=== PATIENT | female | born 1940 | race Caucasian/White ===

== ENCOUNTER 2022-03-24 02:20 | Inpatient (IN) | payer OTHER, SELFPAY ==
[2022-03-24] VITALS (18 sets, daily range): BP systolic 91–126; BP diastolic 51–80; PULSE 84–98; RESP 15–19; TEMP 36.2–36.8; O2SAT 93–99; BMI 12.3
--- NOTE | ~2022-03-24 | CT_ITS ---
EXAMINATION: NONCONTRAST HEAD CT NONCONTRAST CERVICAL SPINE CT INDICATION INFORMATION: Trauma. Pain. COMPARISON: 08/21/2012 TECHNIQUE: Separate noncontrast CT examinations of the head and cervical spine were performed. Coronal and sagittal images were created for each examination at the technologist workstation. This CT examination was performed using dose optimization techniques as appropriate, variously including the following: *Automated exposure control *Adjustment of mA and/or kV according to patient size (this includes techniques or standardized protocols for targeted exams where dose is matched to indication/reason for exam; i.e. extremities or head) *Use of iterative reconstruction technique DLP: 540 mGy-cm FINDINGS: Head: There is no evidence of acute intracranial hemorrhage or territorial infarction. No abnormal mass effect or midline shift is seen. Grimes to white matter differentiation is well preserved. No extra-axial fluid collections are identified. No hydrocephalus. Proportional prominence of the ventricles and sulcal spaces is consistent with mild volume loss. Patchy periventricular and deep white matter hypoattenuation is consistent with moderate small vessel ischemic changes. Chronic lacunar infarct in the right thalamus. Cavernous carotid calcifications. No acute osseous or soft tissue abnormality. The mastoid air cells and visualized portions of the paranasal sinuses are well aerated. Cervical spine: There is anatomic alignment of the vertebral bodies and posterior elements. The atlantoaxial and atlantooccipital articulations are intact. Vertebral body heights maintained. Confluent bridging osteophytes present from C5 T1. 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 Facet arthropathy throughout cervical spine, most notably on the left from C2 through C5 and on the right and C2-C3. No evidence of acute fracture. No prevertebral soft tissue swelling. Visualized portions of the lung apices are unremarkable. The thyroid gland is unremarkable. CT/CT cervical spine wo IV con IMPRESSION: * No acute intracranial findings. * No acute fracture or malalignment of the cervical spine. * Chronic findings as described.
--- NOTE | 2022-03-24 02:44 | ED.ALCOHOL ---
HPI - Alcohol General Chief Complaint: ETOH/Substance Use Stated Complaint: ETOH? Time Seen by Provider: 03/24/22 02:32 Source: patient and EMS Mode of arrival: EMS Limitations: no limitations History of Present Illness HPI narrative: Patient history of depression alcohol abuse apparently had few drinks today slip from the recliner fell backwards had hard time to get up at this time denies any pain or any injuries no loss of consciousness patient lost her and grandchildren 2 years ago since then been depressed and drinking off and on but denies that she is alcoholic walks with walker Related Data Allergies Allergy/AdvReac Type Severity Reaction Status Date / Time iodine [IODINE] Allergy Unknown KERNS Unverified 11/01/19 15:02 SKIN, burning Review of Systems Review of Systems: Yes all other systems are reviewed and are negative [facility] Past Medical History Medical History Alcohol abuse Depression with suicidal ideation Social History Social History Advance Directives: No Advance Directives Information Provided: Yes Physical Exam ED Vital Signs: Vital Signs - 24 hr 03/24/22 02:30 03/24/22 04:56 03/24/22 05:11 Temperature 97.6 F Pulse Rate 90 Respiratory Rate 16 18 18 Blood Pressure 121/69 Pulse Oximetry 94 Oxygen Delivery Method Room Air Oxygen Flow Rate 03/24/22 04:35 03/24/22 04:50 03/24/22 05:20 Temperature Pulse Rate Respiratory Rate 18 18 18 Blood Pressure Pulse Oximetry Oxygen Delivery Method Oxygen Flow Rate 03/24/22 05:05 03/24/22 05:26 03/24/22 05:41 Temperature Pulse Rate Respiratory Rate 18 18 18 Blood Pressure Pulse Oximetry Oxygen Delivery Method Oxygen Flow Rate 03/24/22 05:57 Temperature Pulse Rate 92 Respiratory Rate 18 Blood Pressure 98/55 L Pulse Oximetry 95 Oxygen Delivery Method Nasal Cannula Oxygen Flow Rate 2 BMI result Body Mass Index 12.3 Appearance: Alert. Oriented X3. No acute distress. ETOH++ unkept condition Eyes: PERRLA, No Nystagmus no pallor icterus ENT: Pharynx normal. Oral Mucosa moist Neck: Normal inspection. Neck supple. CVS: Normal heart rate and rhythm. Pulses normal. Respiratory: No respiratory distress. Equal air entry bilateral, no wheezing/rales/rhonchi Abdomen: Soft and nontender. Bowel sounds are present, no mass palpable, no CVA tenderness Skin: Skin warm and dry. Normal skin color. Normal skin turgor. Extremities: 3+ lower extremity edema. No calf tenderness Neuro: Oriented X 3. No motor deficit. No sensory deficit.No cerebellar signs , cranial nerves II-XII intact Medical Decision Making Medical Decision Making [facility] Narrative: Patient alcoholic very agitated in the ER wanted to go home with alcohol level of 187 had to give Ativan and Haldol so that she can relax at this time patient is sleeping will evaluate again when she wakes up whether she needs any help for depression and alcohol use are not. Patient had CT and C-spine CT is negative. Patient need to be re-evaluated by Dr. Vasquez before discharge to see whether patient can ambulate of her own Lab Data [facility] Lab Attestation statement: I reviewed the patient's lab results. 03/24/22 03:03 03/24/22 03:03 Labs: Lab Results 03/24/22 03/24/22 03/24/22 Range/Units 03:03 03:03 03:03 WBC 5.1 (4.8-10.8) X10*3/uL RBC 3.48 L (4.20-5.50) X10*6/uL Hgb 12.3 (12.0-16.0) g/dl Hct 37.1 (37.0-47.0) % MCV 106.6 H (80.0-98.0) fL MCH 35.3 H (27.0-33.0) pg MCHC 33.2 (31.0-35.0) g/dl RDW 12.6 (11.0-16.0) % Plt Count 135 L (160-400) X10*3/uL MPV 9.7 (9.4-12.3) fL Immature Gran % (Auto) 0.2 (0.0-0.4) % Neut % (Auto) 43.6 L (45-73) % Lymph % (Auto) 42.8 H (20-40) % [place] % (Auto) 8.3 (2-11) % Eos % (Auto) 4.5 H (0-4) % Baso % (Auto) 0.6 (0-2) % Lymph # (Auto) 2.2 (1.2-4.9) X10*3/uL [place] # (Auto) 0.4 (0.1-1.2) X10*3/uL Eos # (Auto) 0.2 (0.0-0.4) X10*3/uL Baso # (Auto) 0.0 (0.0-0.2) X10*3/uL Abs Immat Gran (auto) 0.01 (0.00-0.03) X10*3/uL Absolute Neuts (auto) 2.2 (2.0-8.3) x10*3/uL Absolute Nucleated RBC 0.000 (0.0-0.012) X10*3/uL Nucleated RBC % (auto) 0.0 (0.0-0.2) /100WBC PT 13.0 (10.0-13.1) SEC INR 1.1 (0.9-1.1) Sodium 147 H (135-145) mmol/L Potassium 3.7 (3.3-5.1) mmol/L Chloride 106 (96-108) mmol/L Carbon Dioxide 28 (22-29) mmol/L Anion Gap 17 (12-20) BUN 4 L (9-16) mg/dL Creatinine 0.70 (0.5-1.4) mg/dL Estim Creat Clear Calc 30.4 Estimated GFR > 60 Random Glucose 89 (60-115) mg/dL Calcium 8.6 (8.4-10.2) mg/dL Magnesium 1.7 (1.6-2.6) mg/dL Total Bilirubin 0.9 (0.0-1.0) mg/dL AST 40 H (5-31) U/L ALT 20 (0-31) U/L Alkaline Phosphatase 137 H (39-117) U/L B-Natriuretic Peptide (<100) pg/mL Total Protein 5.6 L (6.5-8.0) g/dL Albumin 3.1 L (3.5-5.0) g/dL Ethyl Alcohol mg/dL 03/24/22 03/24/22 Range/Units 03:03 03:03 WBC (4.8-10.8) X10*3/uL RBC (4.20-5.50) X10*6/uL Hgb (12.0-16.0) g/dl Hct (37.0-47.0) % MCV (80.0-98.0) fL MCH (27.0-33.0) pg MCHC (31.0-35.0) g/dl RDW (11.0-16.0) % Plt Count (160-400) X10*3/uL MPV (9.4-12.3) fL Immature Gran % (Auto) (0.0-0.4) % Neut % (Auto) (45-73) % Lymph % (Auto) (20-40) % [place] % (Auto) (2-11) % Eos % (Auto) (0-4) % Baso % (Auto) (0-2) % Lymph # (Auto) (1.2-4.9) X10*3/uL [place] # (Auto) (0.1-1.2) X10*3/uL Eos # (Auto) (0.0-0.4) X10*3/uL Baso # (Auto) (0.0-0.2) X10*3/uL Abs Immat Gran (auto) (0.00-0.03) X10*3/uL Absolute Neuts (auto) (2.0-8.3) x10*3/uL Absolute Nucleated RBC (0.0-0.012) X10*3/uL Nucleated RBC % (auto) (0.0-0.2) /100WBC PT (10.0-13.1) SEC INR (0.9-1.1) Sodium (135-145) mmol/L Potassium (3.3-5.1) mmol/L Chloride (96-108) mmol/L Carbon Dioxide (22-29) mmol/L Anion Gap (12-20) BUN (9-16) mg/dL Creatinine (0.5-1.4) mg/dL Estim Creat Clear Calc Estimated GFR Random Glucose (60-115) mg/dL Calcium (8.4-10.2) mg/dL Magnesium (1.6-2.6) mg/dL Total Bilirubin (0.0-1.0) mg/dL AST (5-31) U/L ALT (0-31) U/L Alkaline Phosphatase (39-117) U/L B-Natriuretic Peptide 147 H (<100) pg/mL Total Protein (6.5-8.0) g/dL Albumin (3.5-5.0) g/dL Ethyl Alcohol 187 mg/dL Medications Administered Discontinued Medications Generic Name Dose Route Start Last Admin Trade Name Freq PRN Reason Stop Dose Admin Haloperidol Lactate 5 mg 03/24/22 04:38 03/24/22 04:41 Haloperidol Lactate 5 Mg/Ml Vial IM 03/24/22 04:39 5 mg ONCE ONE Administration Lorazepam 0.5 mg 03/24/22 04:09 03/24/22 04:19 Lorazepam 2 Mg/Ml Vial IVPUSH 03/24/22 04:10 Not Given ONCE ONE Lorazepam 1 mg 03/24/22 04:18 03/24/22 04:20 Lorazepam 2 Mg/Ml Vial IM 03/24/22 04:19 1 mg ONCE ONE Administration Discharge Plan Discharge Clinical Impression: Alcoholic intoxication Patient Disposition: Still a Patient Additional Instructions: Stop drinking alcohol Follow with detox Interventions: [place]-Suicide Risk Severity Scale Last Done: 03/24/22 03:06
[2022-03-24 03:09] LABS: Basophils Percent Auto 0.6 % (0-2); Eosinophils Absolute Auto 0.2 X10*3/uL (0.0-0.4); Eosinophils Percent Auto 4.5 % (0-4); Hematocrit 37.1 % (37.0-47.0); Hemoglobin 12.3 g/dl (12.0-16.0); Imm Gran Abs Auto 0.01 X10*3/uL (0.00-0.03); Imm Gran Pct Auto 0.2 % (0.0-0.4); Lymphocytes Absolute Auto 2.2 X10*3/uL (1.2-4.9); Lymphocytes Percent Auto 42.8 % (20-40); MANUAL DIFF FLAG NO; Mean Corpuscular HGB Conc 33.2 g/dl (31.0-35.0); Mean Corpuscular Hemoglobin 35.3 pg (27.0-33.0); Mean Corpuscular Volume 106.6 fL (80.0-98.0); Mean Platelet Volume 9.7 fL (9.4-12.3); Monocytes Absolute Auto 0.4 X10*3/uL (0.1-1.2); Monocytes Percent Auto 8.3 % (2-11); Neutrophils Absolute Auto 2.2 x10*3/uL (2.0-8.3); Neutrophils Percent Auto 43.6 % (45-73); Platelet Count 135 X10*3/uL (160-400); Red Blood Count 3.48 X10*6/uL (4.20-5.50); Red Cell Distribution Width 12.6 % (11.0-16.0); White Blood Count 5.1 X10*3/uL (4.8-10.8)
[2022-03-24 03:24] LABS: Ethanol 187 mg/dL
[2022-03-24 03:26] LABS: Alanine Aminotransferase 20 U/L (0-31); Albumin Level 3.1 g/dL (3.5-5.0); Alkaline Phosphatase 137 U/L (39-117); Anion Gap 17 (12-20); Aspartate Amino Transferase 40 U/L (5-31); Bilirubin Total 0.9 mg/dL (0.0-1.0); Blood Urea Nitrogen 4 mg/dL (9-16); Calcium 8.6 mg/dL (8.4-10.2); Carbon Dioxide 28 mmol/L (22-29); Chloride 106 mmol/L (96-108); Creatinine Clr Calc Pharmacy 30.4; Estimated Glomerular Filt Rate > 60; Glucose Random 89 mg/dL (60-115); Magnesium 1.7 mg/dL (1.6-2.6); Potassium 3.7 mmol/L (3.3-5.1); Sodium 147 mmol/L (135-145); Total Protein 5.6 g/dL (6.5-8.0)
[2022-03-24 03:32] LABS: B Type Natriuretic Peptide 147 pg/mL (<100); INTERNATIONAL NORM RATIO 1.1 (0.9-1.1)
[2022-03-24] MEDS: LORazepam 2 MG/ML VIAL 1 MG IM (04:20)
--- NOTE | 2022-03-24 04:30 | PC.NURSE ---
Pt ripped out IV from R AC.
--- NOTE | 2022-03-24 04:34 | PC.NURSE ---
Pt noted to be combative, argumentative screaming at staff. Pt pulled out IV from R AC. Pt medicated per MAR using ordered medication restraint.
[2022-03-24] MEDS: Haloperidol Lactate 5 MG/ML VIAL IM (04:41)
--- NOTE | 2022-03-24 04:52 | PC.NURSE ---
Pt medicated per Apr. Pt continues to yell at staff using profanity attempting to climb out of bed.
--- NOTE | 2022-03-24 05:10 | PC.NURSE ---
Pt medicated per APR r/t pt continues to be combative, yelling at staff using profanity attempting to climb oob.
--- NOTE | 2022-03-24 05:26 | PC.NURSE ---
Pt currently sleeping with eyes closed RR 18 even and unlabored no s/sx respiratory distress noted.
--- NOTE | 2022-03-24 05:47 | PC.NURSE ---
Medication restraint completed. Pt eyes are closed RR 18 even and unlabored.
--- NOTE | 2022-03-24 05:53 | PC.NURSE ---
Pt stating at 81% room air. Pt placed on 2 liters oxygen via nasal cannula. Pt stating 95% on 2 lites. No s/sx of Respiratory distress noted.
--- NOTE | 2022-03-24 08:02 | PC.NURSE ---
pt awake to tactile stimuli, pt was med earlier with ativan 1mg and haldol 5mg. lungs - cta. heart sounds - regular. abd soft and non-tender, bs + x 4 quads. maurisio legs piyush with 2+ pitting edema. iv # 22 placed to l forearm and wrapped with cling.
--- NOTE | 2022-03-24 08:04 | MHC.EDTECH ---
Patient cleaned up and changed from home clothes to hospital gown with help of NOY Farr. Bed changed with fresh linen and pad, purewick placed. Patient was repositioned and head of bed elevated.
[2022-03-24] MEDS: Sodium Chloride 0.45 % 1,000 ML 200 ML IVCONT (08:10)
[2022-03-24 10:22] LABS: Glucose, Whole Blood 67 mg/dL (60-115)
--- NOTE | 2022-03-24 11:43 | PC.NURSE ---
hosp cynthia (danyell) at bedside, pt aware of plan of care for admission to hosp.
[2022-03-24] MEDS: Dextrose 50 % 25 GM/50 ML SYRINGE IVPUSH ×2 (12:02→14:35)
--- NOTE | 2022-03-24 12:02 | PC.NURSE ---
pt's poc 67 given dextrose 50% 25gm ivp x 1.
[2022-03-24 12:12] LABS: Anion Gap 13 (12-20); Blood Urea Nitrogen 4 mg/dL (9-16); Calcium 8.2 mg/dL (8.4-10.2); Carbon Dioxide 33 mmol/L (22-29); Chloride 107 mmol/L (96-108); Creatinine Clr Calc Pharmacy 32.2; Estimated Glomerular Filt Rate > 60; Glucose Random 207 mg/dL (60-115); Potassium 3.5 mmol/L (3.3-5.1); Sodium 149 mmol/L (135-145)
[2022-03-24 13:12] LABS: Influenza A PCR NEGATIVE (Negative); Influenza B PCR NEGATIVE (Negative); Resp Syncy Virus RNA Qual PCR NEGATIVE (Negative); SARS COV2 PCR INHOUSE NEGATIVE (Negative)
--- NOTE | 2022-03-24 13:19 | PHA.MEDREC ---
Pharmacy Consult ? Medication Reconciliation Pharmacy has completed the medication reconciliation. Patient unable to answer questions. left voicemail on sons phone. it doesnt seem the patient takes medication chronically based on fill history.
--- NOTE | 2022-03-24 13:25 | P.HPHOSP_ITS ---
History of Present Illness Date of Service: 03/24/22 Attending physician on admission: Wilman Valle Chief Complaint: Fall Pt is a 81-year-old female with an unknown PMH presents to the ED with after a fall at home. Pt unable to provide HPI due to mentation. Apparently pt was drinking at home last night and slipped from her recliner and fell backwards out of her chair. She denies LOC or headstrike. At the time of presentation to the ED pt also claims she has no pain or injuries. Pt states she lost her husdand and two grandchildren two years ago and since then has been depressed and drinking more frequently. Labs found her to be hypernatremic at 147, which increased to 149 after IVF of NS. Pt became very agitated in the Ed and wanted to go home; she was given Ativan and Haldol for agitation. In the ED patient is hypertensive at 90/55. Labs were significant for MCV of 106.6, sodium of 147 with repeat of 149, BNP elevated at 147. Patient's ethyl alcohol level was 187 at time of presentation. CT?of head and cervical spine showed no acute intracranial findings and no acute fracture or malalignment of the cervical spine. Pt was treated with NS, Ativan, Haldol, and D10. Pt will be admitted to the hospital for treatment of?AMS and hypernatremia with IVF. Review of Systems Review of Systems: Unable to obtain due to patient's mentation [facility] Medical History Alcohol abuse Depression with suicidal ideation Social History Advance Directives: No Advance Directives Information Provided: Yes Meds Allergies Allergy/AdvReac Type Severity Reaction Status Date / Time iodine [IODINE] Allergy Unknown KERNS Unverified 11/01/19 15:02 SKIN, burning Active Medications: Current Medications Sodium Chloride (Sodium Chloride 0.45 %) 1,000 mls @ 200 mls/hr IVCONT .Q5H [facility] Last Admin: 03/24/22 08:10 Dose: 200 mls/hr Dextrose (D10) 1,000 mls @ 100 mls/hr IVCONT .Q10H [facility] Home Medications Medication Instructions Recorded Confirmed Last Taken Type Unobtainable 03/24/22 03/24/22 Unknown History Physical Exam Vital Signs and Narrative: Vital Signs: Last Vital Signs Temp 98.1 F 03/24/22 12:21 Pulse 88 03/24/22 12:21 Resp 17 03/24/22 12:21 BP 101/59 L 03/24/22 12:21 Pulse Ox 97 03/24/22 12:21 O2 Del Method 03/24/22 12:21 O2 Flow Rate 1 03/24/22 12:21 BMI result Body Mass Index 12.3 Constitutional: Somnolent, capable of opening eyes to verbal commands. Mental Status: Not oriented to person, place and time. Eyes: Pupils are equal, round, and reactive to light. Ear, Nose, and Throat: Oropharynx clear, mucous membranes moist. Ears and nose without deformities. Trachea midline. Respiratory: Clear to auscultation bilaterally. No wheezing, rales, or rhonchi. Cardiovascular: S1, S2 regular. No murmurs, rubs, or gallops. Gastrointestinal: Abdomen soft, non-tender, non-distended. Neurologic: Moves all extremities spontaneously. Musculoskeletal: No cyanosis or clubbing. Extremities: Bilateral symmetrical erythema and trace edema. Results Labs 03/24/22 03:03 03/24/22 11:50 Labs: Laboratory Results - last 24 hr 03/24/22 03/24/22 03/24/22 03:03 03:03 03:03 MCV 106.6 H MCH 35.3 H MCHC 33.2 RDW 12.6 Plt Count 135 L MPV 9.7 Immature Gran % (Auto) 0.2 Neut % (Auto) 43.6 L Lymph % (Auto) 42.8 H Young % (Auto) 8.3 Eos % (Auto) 4.5 H Baso % (Auto) 0.6 Lymph # (Auto) 2.2 Young # (Auto) 0.4 Eos # (Auto) 0.2 Baso # (Auto) 0.0 Abs Immat Gran (auto) 0.01 Absolute Neuts (auto) 2.2 Absolute Nucleated RBC 0.000 Nucleated RBC % (auto) 0.0 PT 13.0 INR 1.1 Anion Gap 17 Estim Creat Clear Calc 30.4 Estimated GFR > 60 POC Glucose Random Glucose 89 Calcium 8.6 Magnesium 1.7 Total Bilirubin 0.9 AST 40 H ALT 20 Alkaline Phosphatase 137 H B-Natriuretic Peptide Total Protein 5.6 L Albumin 3.1 L Ethyl Alcohol Influenza Type A (PCR) Influenza Type B (PCR) RSV RNA Qual (PCR) SARS-CoV-2 RNA (RT-PCR) 03/24/22 03/24/22 03/24/22 03:03 03:03 10:18 MCV MCH MCHC RDW Plt Count MPV Immature Gran % (Auto) Neut % (Auto) Lymph % (Auto) Young % (Auto) Eos % (Auto) Baso % (Auto) Lymph # (Auto) Young # (Auto) Eos # (Auto) Baso # (Auto) Abs Immat Gran (auto) Absolute Neuts (auto) Absolute Nucleated RBC Nucleated RBC % (auto) PT INR Anion Gap Estim Creat Clear Calc Estimated GFR POC Glucose 67 Random Glucose Calcium Magnesium Total Bilirubin AST ALT Alkaline Phosphatase B-Natriuretic Peptide 147 H Total Protein Albumin Ethyl Alcohol 187 Influenza Type A (PCR) Influenza Type B (PCR) RSV RNA Qual (PCR) SARS-CoV-2 RNA (RT-PCR) 03/24/22 03/24/22 11:50 12:21 MCV MCH MCHC RDW Plt Count MPV Immature Gran % (Auto) Neut % (Auto) Lymph % (Auto) Young % (Auto) Eos % (Auto) Baso % (Auto) Lymph # (Auto) Young # (Auto) Eos # (Auto) Baso # (Auto) Abs Immat Gran (auto) Absolute Neuts (auto) Absolute Nucleated RBC Nucleated RBC % (auto) PT INR Anion Gap 13 Estim Creat Clear Calc 32.2 Estimated GFR > 60 POC Glucose Random Glucose 207 H Calcium 8.2 L Magnesium Total Bilirubin AST ALT Alkaline Phosphatase B-Natriuretic Peptide Total Protein Albumin Ethyl Alcohol Influenza Type A (PCR) NEGATIVE Influenza Type B (PCR) NEGATIVE RSV RNA Qual (PCR) NEGATIVE SARS-CoV-2 RNA (RT-PCR) NEGATIVE Imaging Radiologist's Impressions: Impressions Cervical Spine CT 03/24/22 04:14 IMPRESSION: * No acute intracranial findings. * No acute fracture or malalignment of the cervical spine. * Chronic findings as described. Head CT 03/24/22 04:14 IMPRESSION: * No acute intracranial findings. * No acute fracture or malalignment of the cervical spine. * Chronic findings as described. Assessment and Plan (1) Alcoholic intoxication: Status: Acute (2) Acute hypernatremia: Status: Acute (3) Hypoglycemia: Status: Acute Plan Pt is a 81-year-old female with an unknown PMH presents to the ED with after a fall at home. Labs revealed acute hypernatremia. Pt will be admitted to the hospital for treatment of?AMS and hypernatremia with IVF. Acute hypernatremia Patient presented with sodium of 147 with repeat of 149 after IVF of NS Continue D10 IVF Monitor labs Fall at home CT of head and spine negative for acute intracranial process or fracture Acetaminophen for pain PT evaluation prior to discharge Acute alcohol intoxication in the setting of alcohol use disorder Patient presented with ethyl alcohol level of 187 Check folic acid and B12 levels Thiamine, folate CARE team consult Agitation Patient received Haldol and Ativan in ED for agitation Monitor mentation/mood Hypotension Possibly secondary to dehydration Pt presented with BP of 98/55, currently 118/64 IVF Monitor BP Elevated BNP Patient's BNP mildly elevated at 147, baseline unknown Patient does not seem in fluid overload Monitor fluid status Hypoglycemia Pt's POC found to be as low as 51 Continue D10 Monitor glucose Encourage po intake when capable Full Code Attending:?Dr. Valle DVT Prophylaxis: Lovenox Pt will require a hospitalization of at least two nights for treatment of?AMS and hypernatremia with IVF. Time Spent With Patient Time: Total time managing care of this patient today ____ minutes. Quality Stroke Does the patient have a stroke diagnosis?: No VTE Prior VTE?: No VTE Risk Level:: Medical - moderate - high VTE Device Contraindication: Treatment Not Indicated VTE Drug Contraindication: N/A - Med Ordered
--- NOTE | 2022-03-24 14:10 | MHC.CM.ED ---
Received case management consult from Dr Vasquez. Patient came to the ER due to a fall r/t ETOH abuse. Physical therapy attempted to meet with patient. Patient was too somnolent to participate. If short term rehab is recommended, placement will not be able to be found until CIWA score is zero. Dr Vasquez aware. Continue to monitor for d/c needs.
[2022-03-24 14:11] LABS: Glucose, Whole Blood 51 mg/dL (60-115)
[2022-03-24] MEDS: Dextrose 10 % 1,000 ML 100 ML IVCONT ×2 (14:29→23:51)
--- NOTE | 2022-03-24 14:37 | MHC.EDTECH ---
Patient completely soiled with urine around 1130AM. She soaked two underpads, hospital gown and sheets with an extra large amt. of urine. Patient cleaned up with help of photographic equipment technicianharry Kessler and put into clean hospital gown, fresh linen put on stretcher with underpads. Patient's purewick put back in place and patient repositioned in bed.
[2022-03-24] MEDS: Enoxaparin Sodium 40 MG/0.4 ML SYRINGE SUBCUT (15:45)
--- NOTE | 2022-03-24 15:47 | PC.NURSE ---
Patient still sleeping not responding to voice. vitals stable.
[2022-03-24 16:00] LABS: Folate 10.8 ng/mL (> or = 4.0); Vitamin B12 401 pg/mL (200-900)
[2022-03-24 16:57] LABS: Glucose, Whole Blood 91 mg/dL (60-115)
[2022-03-24] MEDS: Folic Acid 1 MG TABLET PO (16:57)
[2022-03-24] MEDS: Thiamine HCL 100 MG TABLET PO (16:57)
--- NOTE | 2022-03-24 17:28 | PC.NURSE ---
Patient sleeping off medications. re checked blood sugar-91. Took her folic acid and thiamine and went back to sleep. Patient denies any pain.
[2022-03-24] MEDS: 0.9 % Sodium Chloride Flush 3 ML SYRINGE IVFLUSH (20:12)
[2022-03-24 20:48] LABS: Anion Gap 13 (12-20); Blood Urea Nitrogen 4 mg/dL (9-16); Calcium 8.2 mg/dL (8.4-10.2); Carbon Dioxide 31 mmol/L (22-29); Chloride 105 mmol/L (96-108); Creatinine Clr Calc Pharmacy 35.4; Estimated Glomerular Filt Rate > 60; Glucose Random 106 mg/dL (60-115); Potassium 3.2 mmol/L (3.3-5.1); Sodium 146 mmol/L (135-145)
[2022-03-25 03:41] VITALS: BP 141/76; PULSE 89; RESP 18; TEMP 36.5; O2SAT 97
[2022-03-25 07:38] LABS: Anion Gap 11 (12-20); Blood Urea Nitrogen 3 mg/dL (9-16); Calcium 7.8 mg/dL (8.4-10.2); Carbon Dioxide 33 mmol/L (22-29); Chloride 104 mmol/L (96-108); Creatinine Clr Calc Pharmacy 39.4; Estimated Glomerular Filt Rate > 60; Glucose Random 102 mg/dL (60-115); Sodium 145 mmol/L (135-145)
[2022-03-25 07:48] VITALS: BP 106/52; PULSE 92; RESP 17; TEMP 36.7; O2SAT 94
[2022-03-25] MEDS: Potassium Chloride Packet 20 MEQ PACKET 40 MEQ PO (08:40)
[2022-03-25] MEDS: Thiamine HCL 100 MG TABLET PO (08:41)
[2022-03-25] MEDS: Folic Acid 1 MG TABLET PO (08:41)
[2022-03-25] MEDS: Dextrose 10 % 1,000 ML 100 ML IVCONT (08:50)
[2022-03-25 11:46] VITALS: BMI 25.2
--- NOTE | 2022-03-25 13:51 | HO.PM.IMPN ---
Subjective Subjective Date of Service: 03/25/22 Review of Systems Unable to obtain due to patient's mentation Physical Exam Vital Signs: Vital Signs: Last Vital Signs Temp 98.0 F 03/25/22 07:48 Pulse 92 03/25/22 07:48 Resp 17 03/25/22 07:48 BP 106/52 L 03/25/22 07:48 Pulse Ox 94 03/25/22 07:48 O2 Del Method 03/25/22 07:48 O2 Flow Rate 2.0 03/25/22 07:48 BMI result Body Mass Index 25.2 Const: Other: Constitutional : Awake with stimulation, having UE tremor Neck : Normal inspection, Supple Cardiovascular : RRR, no JVP, no lower extremity edema Respiratory : good bilateral air entry, no crackles, wheezes or rhonchi Gastrointestinal: soft, lax, Normal bowel sounds, Non tender Skin : Warm, Dry Neurological : Alert & oriented to self, No focal deficit , Objective Data Active Medications Acetaminophen (Acetaminophen 325 Mg Tablet) 650 mg PO Q6H PRN PRN Reason: Pain, Mild (Pain Scale 1-3) Docusate Sodium (Docusate Sodium 100 Mg Capsule) 100 mg PO DAILY PRN PRN Reason: Constipation Enoxaparin Sodium (Enoxaparin Sodium 40 Mg/0.4 Ml Syringe) 40 mg SUBCUT Q24H [facility] Last Admin: 03/24/22 15:45 Dose: 40 mg Documented By: JANELLE Folic Acid (Folic Acid 1 Mg Tablet) 1 mg PO DAILY [facility] Last Admin: 03/25/22 08:41 Dose: 1 mg Documented By: PRIMO Dextrose (D10) 1,000 mls @ 100 mls/hr IVCONT .Q10H [facility] Last Admin: 03/25/22 08:50 Dose: 100 mls/hr Documented By: PRIMO Lactic Acid (Ammonium Lactate 12 % Lotion 226 Gm Bottle) 1 appl TOPICAL BID [facility]; Protocol Last Admin: 03/25/22 11:39 Dose: Not Given Documented By: DEBBIE Non-Admin Reason: Med Not Available Ondansetron HCl (Ondansetron Hcl 4 Mg/2 Ml Vial) 4 mg IVPUSH Q8H PRN PRN Reason: Nausea and Vomiting Sodium Chloride (0.9 % Sodium Chloride Flush 3 Ml Syringe) 3 ml IVFLUSH QSHIFT [facility] Last Admin: 03/25/22 08:43 Dose: Not Given Documented By: PRIMO Non-Admin Reason: IV Running Thiamine HCl (Thiamine Hcl 100 Mg Tablet) 100 mg PO DAILY [facility] Last Admin: 03/25/22 08:41 Dose: 100 mg Documented By: PRIMO Labs 03/24/22 03:03 03/25/22 05:57 Labs: Laboratory Results - last 24 hr 03/24/22 03/24/22 03/24/22 11:50 14:08 16:54 Anion Gap Estim Creat Clear Calc Estimated GFR POC Glucose 51 L* 91 Random Glucose Calcium Vitamin B12 401 Folate 10.8 03/24/22 03/25/22 20:06 05:57 Anion Gap 13 11 L Estim Creat Clear Calc 35.4 39.4 Estimated GFR > 60 > 60 POC Glucose Random Glucose 106 102 Calcium 8.2 L 7.8 L Vitamin B12 Folate Assessment and Plan (1) Alcoholic intoxication: Status: Acute (2) Acute hypernatremia: Status: Acute (3) Hypoglycemia: Status: Acute Plan Pt is a 81-year-old female with an unknown PMH presents to the ED with after a fall at home. Labs revealed acute hypernatremia. Pt will be admitted to the hospital for treatment of?AMS and hypernatremia with IVF. Acute hypernatremia Sodium improved to 145 Monitor labs Acute hypokalemia K dropped to 3 to give supplement and follow BMP Fall CT of head and spine negative for acute intracranial process or fracture Acetaminophen for pain PT evaluation prior to discharge Acute alcohol intoxication in the setting of alcohol use disorder Check folic acid and B12 levels Thiamine, folate CARE team consult Agitation improved, still sleepy and refusing care on occasions Monitor mentation/mood PRN Seroquel Hypotension improved, running soft continue IVF Monitor BP Elevated BNP Patient's BNP mildly elevated at 147, baseline unknown Patient does not seem in fluid overload Monitor fluid status Hypoglycemia 2/2 alcoholism and decrease po intake Continue D10 Monitor glucose Encourage po intake when capable Full Code DVT Prophylaxis: Lovenox Pt will require a hospitalization of overnight for treatment of?AMS and hypernatremia with IVF pending safe discharge plan Time Spent With Patient Time: Total time managing care of this patient today ____ minutes. Quality Stroke Does the patient have a stroke diagnosis?: No VTE Prior VTE?: No VTE Risk Level:: Medical - moderate - high VTE Device Contraindication: Treatment Not Indicated VTE Drug Contraindication: N/A - Med Ordered
--- NOTE | 2022-03-25 14:15 | PC.NURSE ---
pt removed IV from Left AC. Dr Valle made aware. Pt had D10 at 100ml/hr through a 20 in her right hand. IV infiltrated. Pt refusing new access. Dr Valle made aware.
[2022-03-25] MEDS: Enoxaparin Sodium 40 MG/0.4 ML SYRINGE SUBCUT (15:11)
[2022-03-25 16:00] VITALS: BP 113/58; PULSE 100; RESP 16; TEMP 36.4; O2SAT 94
--- NOTE | 2022-03-25 16:25 | MHC.CM.PN ---
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
[2022-03-25 20:00] VITALS: BP 103/53; PULSE 100; RESP 16; TEMP 36.6; O2SAT 92
[2022-03-25 21:23] LABS: Glucose, Whole Blood 102 mg/dL (60-115)
[2022-03-25] MEDS: QUEtiapine Fumarate 25 MG TABLET PO (22:33)
[2022-03-25] MEDS: Ibuprofen 400 MG TABLET PO (22:33)
[2022-03-25] MEDS: Docusate Sodium 100 MG CAPSULE PO (22:34)
[2022-03-25] MEDS: Throat Lozenge, Medicated LOZENGE 1 LOZENGE MUCOUS MEM (22:34)
[2022-03-26 03:47] VITALS: BP 106/62; PULSE 89; RESP 18; TEMP 36.2; O2SAT 94
[2022-03-26 07:29] LABS: Glucose, Whole Blood 79 mg/dL (60-115)
[2022-03-26 07:49] LABS: Anion Gap 11 (12-20); Blood Urea Nitrogen 5 mg/dL (9-16); Calcium 8.2 mg/dL (8.4-10.2); Carbon Dioxide 35 mmol/L (22-29); Chloride 106 mmol/L (96-108); Creatinine Clr Calc Pharmacy 68.8; Estimated Glomerular Filt Rate > 60; Glucose Random 70 mg/dL (60-115); Potassium 3.4 mmol/L (3.3-5.1); Sodium 149 mmol/L (135-145)
[2022-03-26 07:52] VITALS: BP 130/63; PULSE 93; RESP 17; TEMP 36.3; O2SAT 93
[2022-03-26] MEDS: Folic Acid 1 MG TABLET PO (10:22)
[2022-03-26] MEDS: Thiamine HCL 100 MG TABLET PO (10:23)
[2022-03-26 11:17] LABS: Glucose, Whole Blood 87 mg/dL (60-115)
--- NOTE | 2022-03-26 12:01 | P.PNIM_ITS ---
Subjective Subjective Date of Service: 03/26/22 Interval History: Seen and evaluated this morning More alert and interactive with stimulation Reports she wants to go home but she still laying in the bed and refusing to work with physical therapist Less aggressive and restless according to nurses Review of Systems Review of Systems: Yes all other systems are reviewed and are negative Physical Exam Vital Signs: Vital Signs: Last Vital Signs Temp 97.4 F 03/26/22 07:52 Pulse 93 03/26/22 07:52 Resp 17 03/26/22 07:52 BP 130/63 03/26/22 07:52 Pulse Ox 93 03/26/22 07:52 O2 Del Method 03/26/22 07:52 O2 Flow Rate 2.0 03/26/22 07:52 BMI result Body Mass Index 25.2 Const: Other: Constitutional : Awake with stimulation, no more UE tremor Neck : Normal inspection, Supple Cardiovascular : RRR, no JVP, no lower extremity edema Respiratory : good bilateral air entry, no crackles, wheezes or rhonchi Gastrointestinal: soft, lax, Normal bowel sounds, Non tender Skin : Warm, Dry Neurological : Alert & oriented to self, No focal deficit , Objective Data Active Medications Benzocaine (Throat Lozenge, Medicated Lozenge) 1 lozenge MUCOUS MEM Q2H PRN PRN Reason: Sore Throat Last Admin: 03/25/22 22:34 Dose: 1 lozenge Documented By: ROSSY Docusate Sodium (Docusate Sodium 100 Mg Capsule) 100 mg PO DAILY PRN PRN Reason: Constipation Last Admin: 03/25/22 22:34 Dose: 100 mg Documented By: ROSSY Enoxaparin Sodium (Enoxaparin Sodium 40 Mg/0.4 Ml Syringe) 40 mg SUBCUT Q24H [facility] Last Admin: 03/25/22 15:11 Dose: 40 mg Documented By: PRIMO Folic Acid (Folic Acid 1 Mg Tablet) 1 mg PO DAILY [facility] Last Admin: 03/26/22 10:22 Dose: 1 mg Documented By: DEBBIE Dextrose (D10) 1,000 mls @ 100 mls/hr IVCONT .Q10H [facility] Last Infusion: 03/26/22 07:15 Dose: 0 mls/hr Documented By: DEBBIE Ibuprofen (Ibuprofen 400 Mg Tablet) 400 mg PO Q4H PRN PRN Reason: Pain, Moderate (Pain Scale 4-6 Last Admin: 03/25/22 22:33 Dose: 400 mg Documented By: ROSSY Lactic Acid (Ammonium Lactate 12 % Lotion 226 Gm Bottle) 1 appl TOPICAL BID [facility]; Protocol Last Admin: 03/26/22 10:22 Dose: Not Given Documented By: DEBBIE Non-Admin Reason: Med Not Available Ondansetron HCl (Ondansetron Hcl 4 Mg/2 Ml Vial) 4 mg IVPUSH Q8H PRN PRN Reason: Nausea and Vomiting Quetiapine Fumarate (Quetiapine Fumarate 25 Mg Tablet) 25 mg PO BID PRN PRN Reason: anxiety/restlessness Last Admin: 03/25/22 22:33 Dose: 25 mg Documented By: ROSSY Sodium Chloride (0.9 % Sodium Chloride Flush 3 Ml Syringe) 3 ml IVFLUSH QSHIFT [facility] Last Admin: 03/26/22 07:13 Dose: Not Given Documented By: DEBBIE Non-Admin Reason: No Access Thiamine HCl (Thiamine Hcl 100 Mg Tablet) 100 mg PO DAILY [facility] Last Admin: 03/26/22 10:23 Dose: 100 mg Documented By: DEBBIE Labs 03/24/22 03:03 03/26/22 05:33 Labs: Laboratory Results - last 24 hr 03/25/22 03/26/22 03/26/22 21:19 05:33 07:23 Anion Gap 11 L Estim Creat Clear Calc 68.8 Estimated GFR > 60 POC Glucose 102 79 Random Glucose 70 Calcium 8.2 L 03/26/22 11:12 Anion Gap Estim Creat Clear Calc Estimated GFR POC Glucose 87 Random Glucose Calcium Assessment and Plan (1) Acute hypernatremia: Status: Acute (2) Hypoglycemia: Status: Acute (3) Agitation: Status: Acute (4) Fall: Status: Acute Plan Pt is a 81-year-old female with an unknown PMH presents to the ED with after a fall at home. Labs revealed acute hypernatremia. Pt will be admitted to the hospital for treatment of?AMS and hypernatremia with IVF. Acute hypernatremia Sodium increased to 149 restart D10W encourage po intake Monitor labs Acute hypokalemia improved follow BMP Fall CT of head and spine negative for acute intracranial process or fracture Acetaminophen for pain PT evaluation prior to discharge Acute alcohol intoxication in the setting of alcohol use disorder normal folic acid and B12 levels Thiamine, folate CARE team consult Agitation, restlessness improved, still sleepy and refusing care on occasions Monitor mentation/mood PRN Seroquel Hypotension improved Elevated BNP mildly elevated at 147 Patient does not seem in fluid overload Monitor fluid status Hypoglycemia 2/2 alcoholism and decrease po intake Continue D10 Monitor glucose Encourage po intake when capable Full Code DVT Prophylaxis: Lovenox Pt will require a hospitalization of overnight for treatment of?AMS and hypernatremia with IVF pending safe discharge plan Time Spent With Patient Time: Total time managing care of this patient today ____ minutes. Quality Stroke Does the patient have a stroke diagnosis?: No VTE Prior VTE?: No VTE Risk Level:: Medical - moderate - high VTE Device Contraindication: Treatment Not Indicated VTE Drug Contraindication: N/A - Med Ordered
--- NOTE | 2022-03-26 12:40 | MHC.CM.PN ---
NO PLAN FOR DC TODAY STILL RECEIVING IV FLUIDS
--- NOTE | 2022-03-26 12:43 | MHC.RECOVRN ---
Met with pt in 374 after consult placed to CARE Team for alcohol use. Pt sitting in bed, awake, alert, slightly adversarial during conversation. When inquiring about what brought pt to the hospital, pt reports it was due to tripping over the broken tile. When t/w continued to ask if pt had been drinking, pt states Who told you that? I don't drink. Pt dismissive of questions regarding alcohol use. Pt reports she lives alone, has 4 children, the eldest being 60 years old, last September. Pt reports she came to the [facility] in 1964 from [place], returned to [place] briefly in 1994 before coming back to the [place] in [place]. Pt reports since returning to the in 1995, she and her lived in separate households, states He lived next door. Pt reports her children do not speak to her, unable to elaborate why or for how long their relationship has been this way. Pt reports she has a DIRECTOR CONSUMER and one friend who are supportive. Pt provided with recovery resources and encouraged to reach out to t/w if needed. Pt requesting to dc home, RN aware.
[2022-03-26 15:37] VITALS: BP 130/58; PULSE 89; RESP 16; TEMP 36; O2SAT 92
[2022-03-26 17:08] LABS: Glucose, Whole Blood 94 mg/dL (60-115)
[2022-03-26] MEDS: Enoxaparin Sodium 40 MG/0.4 ML SYRINGE SUBCUT (17:12)
[2022-03-26 19:59] VITALS: BP 110/63; PULSE 100; RESP 16; TEMP 37.1; O2SAT 92
[2022-03-26] MEDS: Ammonium Lactate 12 % Lotion 226 GM BOTTLE 1 APPL TOPICAL (22:32)
[2022-03-27] MEDS: Ibuprofen 400 MG TABLET PO ×2 (01:01→19:54)
[2022-03-27] MEDS: Throat Lozenge, Medicated LOZENGE 1 LOZENGE MUCOUS MEM (01:01)
[2022-03-27 03:31] VITALS: BP 105/51; PULSE 98; RESP 18; TEMP 36.3; O2SAT 94
[2022-03-27 06:09] LABS: Anion Gap 8 (12-20); Blood Urea Nitrogen 9 mg/dL (9-16); Calcium 8.2 mg/dL (8.4-10.2); Carbon Dioxide 35 mmol/L (22-29); Chloride 106 mmol/L (96-108); Creatinine Clr Calc Pharmacy 67.6; Estimated Glomerular Filt Rate > 60; Glucose Random 77 mg/dL (60-115); Sodium 145 mmol/L (135-145)
[2022-03-27 07:55] VITALS: BP 110/58; PULSE 90; RESP 16; TEMP 36.3; O2SAT 91
[2022-03-27] MEDS: Folic Acid 1 MG TABLET PO (09:34)
[2022-03-27] MEDS: Thiamine HCL 100 MG TABLET PO (09:34)
[2022-03-27] MEDS: Ammonium Lactate 12 % Lotion 226 GM BOTTLE 1 APPL TOPICAL ×2 (09:37→19:56)
[2022-03-27 12:52] VITALS: BP 110/58; PULSE 90; O2SAT 91
--- NOTE | 2022-03-27 13:28 | HO.PM.IMPN ---
Subjective Subjective Date of Service: 03/27/22 Interval History: Seen and evaluated this morning More alert and interactive Willing to work with therapist and set up today Less aggressive and restless according to nurses No reported overnight events Review of Systems Unable to obtain due to patient's mentation Physical Exam Vital Signs: Vital Signs: Last Vital Signs Temp 97.4 F 03/27/22 07:55 Pulse 90 03/27/22 12:52 Resp 16 03/27/22 07:55 BP 110/58 L 03/27/22 12:52 Pulse Ox 91 L 03/27/22 12:52 O2 Del Method 03/27/22 07:55 O2 Flow Rate 2 03/27/22 07:55 BMI result Body Mass Index 25.2 Const: Other: Constitutional : Alert, interactive Neck : Normal inspection, Supple Cardiovascular : RRR, no JVP, no lower extremity edema Respiratory : good bilateral air entry, no crackles, wheezes or rhonchi Gastrointestinal: soft, lax, Normal bowel sounds, Non tender Skin : Warm, Dry Neurological : Alert & oriented to self, No focal deficit , Objective Data Active Medications Benzocaine (Throat Lozenge, Medicated Lozenge) 1 lozenge MUCOUS MEM Q2H PRN PRN Reason: Sore Throat Last Admin: 03/27/22 01:01 Dose: 1 lozenge Documented By: ROSSY Docusate Sodium (Docusate Sodium 100 Mg Capsule) 100 mg PO DAILY PRN PRN Reason: Constipation Last Admin: 03/25/22 22:34 Dose: 100 mg Documented By: ROSSY Enoxaparin Sodium (Enoxaparin Sodium 40 Mg/0.4 Ml Syringe) 40 mg SUBCUT Q24H [facility] Last Admin: 03/26/22 17:12 Dose: 40 mg Documented By: DEBBIE Folic Acid (Folic Acid 1 Mg Tablet) 1 mg PO DAILY [facility] Last Admin: 03/27/22 09:34 Dose: 1 mg Documented By: KIMANI Dextrose (D10) 1,000 mls @ 100 mls/hr IVCONT .Q10H [facility] Last Admin: 03/27/22 09:18 Dose: Not Given Documented By: KIMANI Non-Admin Reason: No Access Ibuprofen (Ibuprofen 400 Mg Tablet) 400 mg PO Q4H PRN PRN Reason: Pain, Moderate (Pain Scale 4-6 Last Admin: 03/27/22 01:01 Dose: 400 mg Documented By: ROSSY Lactic Acid (Ammonium Lactate 12 % Lotion 226 Gm Bottle) 1 appl TOPICAL BID [facility]; Protocol Last Admin: 03/27/22 09:37 Dose: 1 appl Documented By: KIMANI Ondansetron HCl (Ondansetron Hcl 4 Mg/2 Ml Vial) 4 mg IVPUSH Q8H PRN PRN Reason: Nausea and Vomiting Quetiapine Fumarate (Quetiapine Fumarate 25 Mg Tablet) 25 mg PO BID PRN PRN Reason: anxiety/restlessness Last Admin: 03/25/22 22:33 Dose: 25 mg Documented By: ROSSY Sodium Chloride (0.9 % Sodium Chloride Flush 3 Ml Syringe) 3 ml IVFLUSH QSHIFT [facility] Last Admin: 03/27/22 09:17 Dose: Not Given Documented By: KIMANI Non-Admin Reason: No Access Thiamine HCl (Thiamine Hcl 100 Mg Tablet) 100 mg PO DAILY [facility] Last Admin: 03/27/22 09:34 Dose: 100 mg Documented By: KIMANI Labs 03/24/22 03:03 03/27/22 05:30 Labs: Laboratory Results - last 24 hr 03/26/22 03/27/22 17:05 05:30 Anion Gap 8 L Estim Creat Clear Calc 67.6 Estimated GFR > 60 POC Glucose 94 Random Glucose 77 Calcium 8.2 L Assessment and Plan (1) Fall: Status: Acute (2) Agitation: Status: Acute (3) Alcoholic intoxication: Status: Acute (4) Acute hypernatremia: Status: Acute (5) Hypoglycemia: Status: Acute Plan Pt is a 81-year-old female with an unknown PMH presents to the ED with after a fall at home. Labs revealed acute hypernatremia. Pt will be admitted to the hospital for treatment of?AMS and hypernatremia with IVF. Acute hypernatremia Sodium improved to 145 Discontinue D10W by the end of the day encourage po intake Monitor labs Acute hypokalemia improved follow BMP Fall CT of head and spine negative for acute intracranial process or fracture Acetaminophen for pain PT evaluation prior to discharge, suggest SNF placement Acute alcohol intoxication in the setting of alcohol use disorder normal folic acid and B12 levels Thiamine, folate CARE team consult Agitation, restlessness improved, still sleepy and refusing care on occasions Monitor mentation/mood PRN Seroquel Hypotension improved Elevated BNP mildly elevated at 147 Patient does not seem in fluid overload Monitor fluid status Hypoglycemia 2/2 alcoholism and decrease po intake Resolved Monitor glucose Encourage po intake when capable Full Code DVT Prophylaxis: Lovenox Pt will require a hospitalization of overnight for treatment of?AMS and hypernatremia with IVF pending safe discharge plan Time Spent With Patient Time: Total time managing care of this patient today ____ minutes. Quality Stroke Does the patient have a stroke diagnosis?: No VTE Prior VTE?: No VTE Risk Level:: Medical - moderate - high VTE Device Contraindication: Treatment Not Indicated VTE Drug Contraindication: N/A - Med Ordered
[2022-03-27] MEDS: Enoxaparin Sodium 40 MG/0.4 ML SYRINGE SUBCUT (14:17)
--- NOTE | 2022-03-27 14:27 | MHC.CM.PN ---
PT RECOMMENDING STR, SNF REFERRAL BROADCASTED TO LOCAL FACILITIES.
[2022-03-27 15:25] VITALS: BP 103/59; PULSE 92; RESP 16; TEMP 36.2; O2SAT 98
[2022-03-27 20:00] VITALS: BP 115/58; PULSE 87; RESP 18; TEMP 37.4; O2SAT 97
[2022-03-28 04:00] VITALS: BP 127/69; PULSE 90; RESP 20; TEMP 36.4; O2SAT 95
[2022-03-28 06:16] LABS: Hematocrit 33.1 % (37.0-47.0); Mean Corpuscular HGB Conc 33.2 g/dl (31.0-35.0); Mean Corpuscular Hemoglobin 36.4 pg (27.0-33.0); Mean Corpuscular Volume 109.6 fL (80.0-98.0); Mean Platelet Volume 10.2 fL (9.4-12.3); Platelet Count 116 X10*3/uL (160-400); Red Blood Count 3.02 X10*6/uL (4.20-5.50); Red Cell Distribution Width 12.9 % (11.0-16.0); White Blood Count 4.9 X10*3/uL (4.8-10.8)
[2022-03-28 06:36] LABS: Magnesium 1.6 mg/dL (1.6-2.6)
[2022-03-28 07:00] LABS: Anion Gap 13 (12-20); Blood Urea Nitrogen 9 mg/dL (9-16); Calcium 8.5 mg/dL (8.4-10.2); Carbon Dioxide 33 mmol/L (22-29); Chloride 105 mmol/L (96-108); Estimated Glomerular Filt Rate > 60; Glucose Random 71 mg/dL (60-115); Potassium 4.1 mmol/L (3.3-5.1); Sodium 147 mmol/L (135-145)
[2022-03-28 08:00] VITALS: BP 122/59; PULSE 95; RESP 18; TEMP 36.8; O2SAT 90
[2022-03-28] MEDS: Ammonium Lactate 12 % Lotion 226 GM BOTTLE 1 APPL TOPICAL (09:16)
[2022-03-28] MEDS: Thiamine HCL 100 MG TABLET PO (09:16)
[2022-03-28] MEDS: Folic Acid 1 MG TABLET PO (09:16)
--- NOTE | 2022-03-28 10:19 | P.DS_ITS ---
DS: Providers Provider Date of Service: 03/28/22 Date of admission: 03/24/22 14:56 Primary care physician: Sabino Christina MD Consults: 03/24/22 06:52 Consult to Care Team Stat Comment: Reason for consultation: alcoholic DS: Diagnosis Discharge Diagnosis (1) Fall: Status: Acute (2) Agitation: Status: Acute (3) Alcoholic intoxication: Status: Acute (4) Acute hypernatremia: Status: Acute (5) Hypoglycemia: Status: Acute (6) Toxic metabolic encephalopathy: Status: Acute DS: Summary Hospital Course Hospital Course: Admission note HPI Pt is a 81-year-old female with an unknown PMH presents to the ED with after a fall at home. Pt unable to provide HPI due to mentation. Apparently pt was drinking at home last night and slipped from her recliner and fell backwards out of her chair. She denies LOC or headstrike. At the time of presentation to the ED pt also claims she has no pain or injuries. Pt states she lost her husdand and two grandchildren two years ago and since then has been depressed and drinking more frequently. Labs found her to be hypernatremic at 147, which increased to 149 after IVF of NS. Pt became very agitated in the Ed and wanted to go home; she was given Ativan and Haldol for agitation.?In the ED patient is hypertensive at 90/55. Labs were significant for MCV of 106.6, sodium of 147 with repeat of 149, BNP elevated at 147. Patient's ethyl alcohol level was 187 at time of presentation. CT?of head and cervical spine showed no acute intracranial findings and no acute fracture or malalignment of the cervical spine. Pt was treated with NS, Ativan, Haldol, and D10. Pt will be admitted to the hospital for treatment of?AMS and hypernatremia with IVF. Hospital course The patient was admitted to the hospital for evaluation of acute toxic metabolic encephalopathy secondary to alcohol intoxication, hypernatremia and low blood sugar. The patient was admitted to medical floor and treated with IV fluid with good response over the course of hospital stay as her sodium level improved back to normal range. Hypokalemia corrected and blood sugar readings improved back to normal. CT scan of the head and spine admission was negative for any acute findings. She reported binge drinking in 1 incident prior to admission. Advised complete abstinence from. Care team evaluated the patient and recommended outpatient resources. Her encephalopathy was complicated by agitation and restlessness requiring doses of Haldol and Seroquel. 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 We advise you complete abstinence from alcohol Increase free water intake To start physical therapy at home Time Spent with Patient Time attestation: Total time managing care of this patient today ____ minutes. Discharge coordination time: Greater than 30 minutes Quality: Safe Use of Opioids Does Pt have an Active Cancer Diagnosis on the Problem List?: No Quality: Stroke Does the patient have a stroke diagnosis?: No Physical Exam Vital Signs: Vital Signs: Last Vital Signs Temp 98.3 F 03/28/22 08:00 Pulse 95 03/28/22 08:00 Resp 18 03/28/22 08:00 BP 122/59 L 03/28/22 08:00 Pulse Ox 90 L 03/28/22 08:00 O2 Del Method 03/28/22 08:00 O2 Flow Rate 2 03/27/22 20:00 BMI result Body Mass Index 25.2 Const: Other: Constitutional : Alert, interactive Neck : Normal inspection, Supple Cardiovascular : RRR, no JVP, no lower extremity edema Respiratory : good bilateral air entry, no crackles, wheezes or rhonchi Gastrointestinal: soft, lax, Normal bowel sounds, Non tender Skin : Warm, Dry Neurological : Alert & oriented x3, No focal deficit , DS: Data Data Completed and Pending Labs on day of discharge: Laboratory Results - last 24 hr 03/28/22 03/28/22 03/28/22 05:39 05:39 05:39 WBC 4.9 RBC 3.02 L Hgb 11.0 L Hct 33.1 L MCV 109.6 H MCH 36.4 H MCHC 33.2 RDW 12.9 Plt Count 116 L MPV 10.2 Absolute Nucleated RBC 0.000 Nucleated RBC % (auto) 0.0 Sodium 147 H Potassium 4.1 Chloride 105 Carbon Dioxide 33 H Anion Gap 13 BUN 9 Creatinine 0.55 Estim Creat Clear Calc 70.0 Estimated GFR > 60 Random Glucose 71 Calcium 8.[address] scan - head: Radiologist's impression: ITS Impressions Cervical Spine CT 03/24/22 04:14 IMPRESSION: * No acute intracranial findings. * No acute fracture or malalignment of the cervical spine. * Chronic findings as described. Head CT 03/24/22 04:14 IMPRESSION: * No acute intracranial findings. * No acute fracture or malalignment of the cervical spine. * Chronic findings as described. Discharge Plan Discharge Anticipated Discharge Date/Time: 03/28/22 10:04 Patient Disposition: Home Health Service Discharge Diagnosis: Altered mentation, alcohol intoxication Dehydration, elevated sodium level Low sugar level Referrals: Sabino Christina MD [Primary Care Provider] - 1 Week Discharge Medications: Continued ibuprofen 200 mg Tablet 400 mg PO Q8H PRN (Reason: Pain) fluticasone propionate 50 mcg/actuation spray,suspension 2 spray intranasal DAILY Rx Instructions: 2 sprays into each nostril [id number] 0.05-0.1-1-1 % Drops 1 drp OPHTHALMIC (EYE) BID PRN (Reason: irritated eyes) Rx Instructions: instill 1 drop in both eyes Mucinex 1,200 mg Tablet Extended Release 12hr 1,200 mg PO BID PRN (Reason: Congestion) Discharge Orders: Discharge Order (Routine); Ordered 03/28/22 Ordered By: Wilman Valle Diet: Advance to usual diet Activity on Discharge: As tolerated Stand Alone Forms: Patient Portal Discharge page Activity Restrictions/Additional Instructions: Stop drinking alcohol Follow with detox Care Plan Goals: Read below Health Concerns: Read below Plan of Treatment: Read below Assessment: You were admitted to the hospital for evaluation of altered mentation from alcohol intoxication. Treated with gentle hydration with improvement of your mental status over the course of hospital stay. You were also noted to have low sugar level and elevated sodium level from dehydration and decreased oral intake. Improved with hydration and increased oral intake. Evaluated by physical therapy team recommended short-term rehab but you prefer to go back home. We advise you complete abstinence from alcohol Increase free water intake To start physical therapy at home Patient Instructions: Abuse of Alcohol (ED)
--- NOTE | 2022-03-28 10:37 | PHA.MEDREC ---
Pharmacy Consult ? Medication Reconciliation Pharmacy has completed the medication reconciliation. Spoke to patient.
[2022-03-28 11:54] LABS: Anion Gap 11 (12-20); Blood Urea Nitrogen 9 mg/dL (9-16); Calcium 8.4 mg/dL (8.4-10.2); Carbon Dioxide 33 mmol/L (22-29); Chloride 103 mmol/L (96-108); Creatinine Clr Calc Pharmacy 72.7; Estimated Glomerular Filt Rate > 60; Glucose Random 100 mg/dL (60-115); Potassium 4.2 mmol/L (3.3-5.1); Sodium 143 mmol/L (135-145)
--- NOTE | 2022-03-28 14:33 | W.MHC.F2F ---
Service Date Service Date: 03/28/22 Encounter Date of encounter: 03/28/22 Reasons for Services Signs and symptoms assessed: physical deconditioning Reason for correction: teach disease management Reason for physical therapy: home safety and mobility and therapeutic exercises Homebound: Leaving the home is medically contraindicated at this time without the asist of a device and/or another person due th the listed conditions above and below. Reason homebound: unsteady gait / fall risk Certification: Based on the above findings, I certify that this patient is confined to the home and needs intermittent correction care, physical therapy and/or speech therapy, or continues to need occupational therapy. The patient is under my care, and I have initiated the establishment of the plan of care. The patient will be followed by a physician who will periodically review the plan of care. Time Spent With Patient Time: Total time managing care of this patient today ____ minutes.
== END 2022-03-28 15:49 | disposition home health service (06) | DRG 640 ==
LOC: HO.ED 12:59 → HO.EDOVER 15:10 → HO.S3 17:13
PROVIDERS: Internal Medicine; Admitting Provider Student in an Organized Health Care Education/Training Program; Emergency Provider Emergency Medicine; PCP Internal Medicine; Visit Provider Student in an Organized Health Care Education/Training Program
DX: E87.0 Hyperosmolality and hypernatremia (principal); G92.8 Other toxic encephalopathy; F10.239 Alcohol dependence with withdrawal, unspecified; F17.210 Nicotine dependence, cigarettes, uncomplicated; I95.9 Hypotension, unspecified; E86.0 Dehydration; E87.6 Hypokalemia; E16.2 Hypoglycemia, unspecified; F10.229 Alcohol dependence with intoxication, unspecified; Z20.822 Contact with and (suspected) exposure to COVID-19; Y90.6 Blood alcohol level of 120-199 mg/100 ml; Z71.6 Tobacco abuse counseling; Z79.51 Long term (current) use of inhaled steroids; Z79.899 Other long term (current) drug therapy
CPT/HCPCS: 0241U; 36415; 70450; 72125; 80048; 80053; 82077; 82607; 82746; 82947; 83735; 83880; 85025; 85027; 85610; 97162; 99285; J1650; J2060